=== PATIENT | female | born 1955 | race Asian ===

== ENCOUNTER 2022-12-14 13:12 | Inpatient (IN) | payer MEDICARE, OTHER ==
[~2022-12-14] VITALS: Ht 152.4 cm; Wt 44.9 kg
[~2022-12-14 13:12] MED LIST: ASPI-1444 PO; ATOR40TA71 PO; CARV25 PO; EZET10TA57 PO; FURO40TA5 PO; LISI-893 PO; MIRT-93 PO; SACU1TAB PO; SPIR-37 PO
[2022-12-14] MEDS ORDERED: NITROGLYCERIN 2% (1 GM=INCH) OINTMENT PACKET TP ONE (14:00)
[2022-12-14] MEDS ORDERED: ONDANSETRON HCL 4 MG/2 ML VIAL IVP ONE (14:00)
[2022-12-14 15:38] LABS: CALCIUM, TOTAL 8.7 mg/dL (8.8-10.5); CREATININE 1.12 mg/dL (0.60-1.30); POTASSIUM 3.5 mmol/L (3.5-5.1)
[2022-12-14 15:46] LABS: ALBUMIN 3.7 g/dL (3.4-5.0); BILIRUBIN,TOTAL 0.9 mg/dL (0.1-1.0); TOTAL PROTEIN, SERUM 7.3 g/dL (6.4-8.2)
[2022-12-14 15:55] LABS: BASOPHILS % (AUTO) 1.9 % (0.0-2.0); EOSINOPHILS % (AUTO) 2.3 % (1.0-6.0); HEMATOCRIT 37.5 % (36-46); HEMOGLOBIN 12.3 g/dL (12.0-16.0); LYMPHOCYTES # (AUTO) 1.4 K/uL (1.0-4.8); MEAN CORPUSCULAR HEMOGLOBIN 30.6 pg (26.0-34.0); MEAN CORPUSCULAR HGB CONC 32.8 G/dL (31.0-37.0); MEAN CORPUSCULAR VOLUME 93 fL (80-100); MONOCYTES # (AUTO) 0.3 K/uL (0.1-1.0); MONOCYTES % (AUTO) 6.6 % (2.0-9.0); NEUTROPHILS # (AUTO) 3.2 K/uL (1.8-7.7); NEUTROPHILS % (AUTO) 62.2 % (40.0-70.0); PLATELET COUNT (AUTO) 260 K/uL (150-450); RED BLOOD CELL COUNT(AUTO) 4.02 MIL/uL (4.00-5.20); RED CELL DISTRIBUTION WIDTH 13.8 % (11.5-14.5)
[2022-12-14] MEDS ORDERED: ONDANSETRON HCL 4 MG/2 ML VIAL IVP PRN (16:15)
[2022-12-14] MEDS ORDERED: ACETAMINOPHEN 325 MG TABLET PO PRN (16:15)
[2022-12-14] MEDS ORDERED: HEPARIN SODIUM,PORCINE 5,000 UNITS/ML VIAL IVP PRN ×2 (16:45)
[2022-12-14] MEDS ORDERED: HEPARIN SODIUM 25000 UNITS/D5W 250 ML IV PRN (16:45)
[2022-12-14] MEDS ORDERED: HEPARIN SODIUM,PORCINE 5,000 UNITS/ML VIAL IVP ONE (16:50)
[2022-12-14] MEDS: ATORVASTATIN CALCIUM 40 MG TABLET PO SCH (16:52)
[2022-12-14] MEDS: ASPIRIN 325 MG TABLET PO SCH (16:52)
[2022-12-14 17:19] LABS: EOSINOPHILS % (AUTO) 1.1 % (1.0-6.0); HEMATOCRIT 38.1 % (36-46); HEMOGLOBIN 12.5 g/dL (12.0-16.0); LYMPHOCYTES # (AUTO) 1.3 K/uL (1.0-4.8); LYMPHOCYTES % (AUTO) 24.7 % (22.0-44.0); MEAN CORPUSCULAR HEMOGLOBIN 30.6 pg (26.0-34.0); MEAN CORPUSCULAR HGB CONC 32.9 G/dL (31.0-37.0); MEAN CORPUSCULAR VOLUME 93 fL (80-100); MONOCYTES # (AUTO) 0.2 K/uL (0.1-1.0); MONOCYTES % (AUTO) 4.5 % (2.0-9.0); NEUTROPHILS # (AUTO) 3.7 K/uL (1.8-7.7); NEUTROPHILS % (AUTO) 68.7 % (40.0-70.0); PLATELET COUNT (AUTO) 268 K/uL (150-450); RED BLOOD CELL COUNT(AUTO) 4.08 MIL/uL (4.00-5.20); RED CELL DISTRIBUTION WIDTH 13.8 % (11.5-14.5)
[2022-12-14 17:31] LABS: PROTHROMBIN TIME 10.9 SEC (9.4-11.6)
[2022-12-14 18:11] LABS: APPEARANCE,URINE TURBID (CLEAR); BILIRUBIN,URINE NEGATIVE (NEGATIVE); GLUCOSE, URINE (UA) NEGATIVE (NEGATIVE); KETONES,URINE TRACE mg/dL (NEGATIVE); LEUKOCYTE ESTERASE ,URINE SMALL (NEGATIVE); NITRATE,URINE NEGATIVE (NEGATIVE); OCCULT BLOOD,URINE SMALL (NEGATIVE); PH,URINE 5.5 (5.0-8.0); PROTEIN,URINE 100-200,SEE CONFIRM mg/dL (NEGATIVE); SPECIFIC GRAVITIY, URINE 1.023 (1.003-1.030); UROBILINOGEN,URINE <=1.0 mg/dL (<=1.0)
[2022-12-14 18:21] LABS: RBC,URINE 0-2 /HPF (0-2); SULFOSALICYLIC ACID,URINE 2+ (Negative)
[2022-12-14 18:22] LABS: BACTERIA,URINE Many /HPF (None Seen)
[2022-12-14 18:55] VITALS: BP 106/66
[2022-12-14 20:19] VITALS: BP 104/58
[2022-12-14] MEDS: DOCUSATE SODIUM 100 MG CAPSULE PO SCH (20:30)
[2022-12-14] MEDS: FUROSEMIDE 40 MG/4 ML VIAL IVP SCH (20:30)
[2022-12-14] MEDS: CARVEDILOL 3.125 MG TABLET PO SCH (20:30)
[2022-12-14] MEDS ORDERED: INFLUENZA VIRUS VACCINE QVS 2022-23 (6MO+)/PF 60 MCG/0.5 ML SYRINGE IM. ONE (20:45)
[2022-12-15] MEDS ORDERED: HEPARIN SODIUM,PORCINE 5,000 UNITS/ML VIAL SQ SCH
[2022-12-15 00:07] VITALS: BP 97/63
[2022-12-15 05:03] VITALS: BP 91/63
[2022-12-15 07:10] LABS: BASOPHILS % (AUTO) 1.9 % (0.0-2.0); HEMATOCRIT 38.5 % (36-46); HEMOGLOBIN 12.8 g/dL (12.0-16.0); LYMPHOCYTES # (AUTO) 2.1 K/uL (1.0-4.8); MEAN CORPUSCULAR HEMOGLOBIN 31.1 pg (26.0-34.0); MEAN CORPUSCULAR HGB CONC 33.3 G/dL (31.0-37.0); MEAN CORPUSCULAR VOLUME 94 fL (80-100); MONOCYTES # (AUTO) 0.3 K/uL (0.1-1.0); MONOCYTES % (AUTO) 5.9 % (2.0-9.0); NEUTROPHILS # (AUTO) 2.4 K/uL (1.8-7.7); NEUTROPHILS % (AUTO) 47.2 % (40.0-70.0); PLATELET COUNT (AUTO) 244 K/uL (150-450); RED BLOOD CELL COUNT(AUTO) 4.12 MIL/uL (4.00-5.20); RED CELL DISTRIBUTION WIDTH 13.9 % (11.5-14.5)
[2022-12-15 07:30] VITALS: BP 91/61
[2022-12-15] MEDS: ASPIRIN 325 MG TABLET PO SCH (08:22)
[2022-12-15] MEDS: FAMOTIDINE 20 MG TABLET PO SCH (08:22)
[2022-12-15] MEDS: DOCUSATE SODIUM 100 MG CAPSULE PO SCH ×2 (08:22→20:45)
[2022-12-15] MEDS: FUROSEMIDE 40 MG/4 ML VIAL IVP SCH ×3 (08:22→20:46)
[2022-12-15] MEDS: ATORVASTATIN CALCIUM 40 MG TABLET PO SCH (08:24)
[2022-12-15] MEDS ORDERED: ASPIRIN 81 MG CHEWABLE TABLET PO SCH (09:00)
[2022-12-15] MEDS: CARVEDILOL 3.125 MG TABLET PO SCH ×3 (09:00→21:00)
[2022-12-15] MEDS ORDERED: ATORVASTATIN CALCIUM 40 MG TABLET PO SCH (09:00)
[2022-12-15 11:43] VITALS: BP 97/73
[2022-12-15 16:33] VITALS: BP 101/66
[2022-12-15 20:27] VITALS: BP 90/54
[2022-12-15] MEDS: HEPARIN SODIUM,PORCINE 5,000 UNITS/ML VIAL SQ SCH (20:47)
[2022-12-16 00:12] VITALS: BP 92/59
[2022-12-16 05:01] VITALS: BP 91/56
[2022-12-16 07:21] VITALS: BP 100/69
[2022-12-16 07:39] LABS: BASOPHILS % (AUTO) 1.5 % (0.0-2.0); EOSINOPHILS % (AUTO) 4.8 % (1.0-6.0); HEMATOCRIT 36.5 % (36-46); HEMOGLOBIN 12.1 g/dL (12.0-16.0); LYMPHOCYTES # (AUTO) 1.8 K/uL (1.0-4.8); LYMPHOCYTES % (AUTO) 35.9 % (22.0-44.0); MEAN CORPUSCULAR HEMOGLOBIN 31.2 pg (26.0-34.0); MEAN CORPUSCULAR HGB CONC 33.3 G/dL (31.0-37.0); MEAN CORPUSCULAR VOLUME 94 fL (80-100); MONOCYTES # (AUTO) 0.4 K/uL (0.1-1.0); MONOCYTES % (AUTO) 8.1 % (2.0-9.0); NEUTROPHILS # (AUTO) 2.5 K/uL (1.8-7.7); NEUTROPHILS % (AUTO) 49.7 % (40.0-70.0); PLATELET COUNT (AUTO) 235 K/uL (150-450); RED BLOOD CELL COUNT(AUTO) 3.89 MIL/uL (4.00-5.20); RED CELL DISTRIBUTION WIDTH 13.8 % (11.5-14.5)
[2022-12-16 07:53] LABS: CALCIUM, TOTAL 8.5 mg/dL (8.8-10.5); CREATININE 1.16 mg/dL (0.60-1.30)
[2022-12-16 07:59] LABS: POTASSIUM 2.8 mmol/L (3.5-5.1)
[2022-12-16] MEDS ORDERED: POTASSIUM CHLORIDE 20 MEQ ER TABLET PO PRN (08:15)
[2022-12-16] MEDS ORDERED: POTASSIUM CHL 10 MEQ/WATER 50 ML IV PRN (08:15)
[2022-12-16] MEDS ORDERED: SODIUM CHLORIDE 0.9% 500 ML IV ONE (08:57)
[2022-12-16] MEDS: ASPIRIN 325 MG TABLET PO SCH (08:59)
[2022-12-16] MEDS: FAMOTIDINE 20 MG TABLET PO SCH (08:59)
[2022-12-16] MEDS: ATORVASTATIN CALCIUM 40 MG TABLET PO SCH (08:59)
[2022-12-16] MEDS: DOCUSATE SODIUM 100 MG CAPSULE PO SCH ×2 (08:59→20:48)
[2022-12-16] MEDS: FUROSEMIDE 40 MG/4 ML VIAL IVP SCH (08:59)
[2022-12-16] MEDS: CARVEDILOL 3.125 MG TABLET PO SCH ×2 (09:00→20:48)
[2022-12-16] MEDS: HEPARIN SODIUM,PORCINE 5,000 UNITS/ML VIAL SQ SCH ×2 (09:00→21:00)
[2022-12-16 12:20] VITALS: BP 100/68
[2022-12-16] MEDS ORDERED: FURO20TA4 PO (13:11)
[2022-12-16] MEDS ORDERED: EMPA10TA3 PO (13:11)
[2022-12-16 13:41] LABS: ABG BASE EXCESS 4.5 mmol/L (-2.0-3.0); ABG CARBOXYHEMOGLOBIN 1.4 % (0.0-1.5); ABG HCO3 28.5 mmol/L (22.0-26.0); ABG METHEMOGLOBIN 0.3 % (0.0-1.5); ABG OXYGEN CONTENT 18.5 mL/dL (15.0-23.0); ABG OXYGEN SATURATION 97.2 % (95.0-98.0); ABG OXYHEMOGLOBIN 95.5 % (94.0-100.0); ABG PCO2 37 mmHg (35-45); ABG PH 7.491 (7.35-7.450); ABG TOTAL HEMOGLOBIN 13.7 G/dL (12.0-18.0); PO2, ARTERIAL BG 90.7 mmHg (79.0-87.0); SOURCE, BLOOD GAS ARTERIAL; TEMPERATURE, FAHRENHEIT, BG 98.6 FAHREN (96.0-98.6)
[2022-12-16 13:42] LABS: SITE, BLOOD GAS RT RADIAL
[2022-12-16 15:51] VITALS: BP 102/66
[2022-12-16 20:24] VITALS: BP 100/65
[2022-12-16] MEDS: FUROSEMIDE 40 MG TABLET PO SCH (20:48)
[2022-12-16] MEDS ORDERED: CARVEDILOL 3.125 MG TABLET PO SCH (21:00)
[2022-12-17 00:45] VITALS: BP 90/58
[2022-12-17 05:22] VITALS: BP 91/60
[2022-12-17 07:32] VITALS: BP 93/59
[2022-12-17] MEDS: HEPARIN SODIUM,PORCINE 5,000 UNITS/ML VIAL SQ SCH (09:00)
[2022-12-17] MEDS: DOCUSATE SODIUM 100 MG CAPSULE PO SCH (09:00)
[2022-12-17] MEDS ORDERED: LOSARTAN POTASSIUM 25 MG TABLET PO SCH (09:00)
[2022-12-17] MEDS: ASPIRIN 325 MG TABLET PO SCH (09:21)
[2022-12-17] MEDS: CARVEDILOL 3.125 MG TABLET PO SCH (09:22)
[2022-12-17] MEDS: FUROSEMIDE 40 MG TABLET PO SCH (09:22)
[2022-12-17] MEDS ORDERED: CARV3 PO (09:22)
[2022-12-17] MEDS: FAMOTIDINE 20 MG TABLET PO SCH (09:22)
[2022-12-17] MEDS: ATORVASTATIN CALCIUM 40 MG TABLET PO SCH (09:23)
[2022-12-17] MEDS ORDERED: FURO40 PO (09:23)
[2022-12-17] MEDS ORDERED: POTA-202 PO (09:25)
[2022-12-17 11:40] VITALS: BP 90/58
== END 2022-12-17 13:00 | disposition home health service (06) | DRG 280 ==
LOC: EMS 13:12 → AHU 17:28 → 5S 18:03
PROVIDERS: ADMIT Internal Medicine; ATTEND Internal Medicine
DX: I21.4 Non-ST elevation (NSTEMI) myocardial infarction (principal); I50.23 Acute on chronic systolic (congestive) heart failure; I42.8 Other cardiomyopathies; I11.0 Hypertensive heart disease with heart failure; I25.10 Atherosclerotic heart disease of native coronary artery without angina pectoris; E78.5 Hyperlipidemia, unspecified; I34.0 Nonrheumatic mitral (valve) insufficiency; E87.6 Hypokalemia; M54.9 Dorsalgia, unspecified; Z79.82 Long term (current) use of aspirin; Z79.899 Other long term (current) drug therapy; Z95.810 Presence of automatic (implantable) cardiac defibrillator; Z23 Encounter for immunization; Z53.20 Procedure and treatment not carried out because of patient's decision for unspecified reasons
CPT/HCPCS: 36600; 71045; 80048; 80053; 81001; 81002; 82550; 82805; 83690; 83880; 84132; 84484; 85025; 85610; 85730; 87086; 87186; 93005; 93306; 99291; G0378; J1644; J1940; J2405; J7040; 36415-L1; 36415-TC

== ENCOUNTER 2024-01-14 19:46 | Inpatient (IN) | payer MEDICARE, OTHER ==
[~2024-01-14] VITALS: Ht 152.4 cm; Wt 43.2 kg
[~2024-01-14 19:46] MED LIST changes: -ASPI-1444 PO; +ASPI81TA87 PO; -CARV25 PO; +CARV3 PO; +EMPA10TA3 PO; -EZET10TA57 PO; +FURO20 PO; -FURO40TA5 PO; -LISI-893 PO; +LOSA-417 PO; +OLAN2.5T29 PO; +POTA-202 PO; -SACU1TAB PO
[2024-01-14 20:32] LABS: BASOPHILS % (AUTO) 0.9 % (0.0-2.0); EOSINOPHILS % (AUTO) 1.4 % (1.0-6.0); HEMATOCRIT 36.1 % (36-46); HEMOGLOBIN 12.1 g/dL (12.0-16.0); LYMPHOCYTES # (AUTO) 1.1 K/uL (1.0-4.8); LYMPHOCYTES % (AUTO) 14.8 % (22.0-44.0); MEAN CORPUSCULAR HEMOGLOBIN 31.5 pg (26.0-34.0); MEAN CORPUSCULAR HGB CONC 33.4 G/dL (31.0-37.0); MEAN CORPUSCULAR VOLUME 94 fL (80-100); MONOCYTES # (AUTO) 0.4 K/uL (0.1-1.0); NEUTROPHILS % (AUTO) 77.9 % (40.0-70.0); PLATELET COUNT (AUTO) 258 K/uL (150-450); RED BLOOD CELL COUNT(AUTO) 3.83 MIL/uL (4.00-5.20); RED CELL DISTRIBUTION WIDTH 14.1 % (11.5-14.5); WHITE BLOOD COUNT (AUTO) 7.7 K/uL (4.5-11.0)
[2024-01-14 20:43] LABS: CALCIUM, TOTAL 8.4 mg/dL (8.8-10.5); CREATININE 1.08 mg/dL (0.60-1.30)
[2024-01-14 20:50] LABS: ALBUMIN 3.4 g/dL (3.4-5.0); BILIRUBIN,TOTAL 1.3 mg/dL (0.1-1.0); TOTAL PROTEIN, SERUM 7.1 g/dL (6.4-8.2)
[2024-01-14 20:52] LABS: TROPONIN I-HIGH SENSITIVITY 1898 ng/L (<51)
[2024-01-14] MEDS ORDERED: ACETAMINOPHEN 325 MG TABLET PO PRN (21:30)
[2024-01-14] MEDS ORDERED: ONDANSETRON HCL 4 MG/2 ML VIAL IVP PRN (21:30)
[2024-01-14] MEDS: ASPIRIN 325 MG TABLET PO ONE (21:31)
[2024-01-14 21:38] LABS: COVID AG,FIA SOURCE NASAL SWAB
[2024-01-14 21:54] LABS: SARS-COV2 (COVID) ANTIGEN,FIA Negative (Negative)
[2024-01-14] MEDS: FUROSEMIDE 20 MG/2 ML VIAL IVP SCH (21:56)
[2024-01-14 22:48] LABS: APPEARANCE,URINE CLEAR (CLEAR); BILIRUBIN,URINE NEGATIVE (NEGATIVE); COLOR,URINE LIGHT YELLOW (YELLOW); GLUCOSE, URINE (UA) NEGATIVE (NEGATIVE); KETONES,URINE NEGATIVE (NEGATIVE); LEUKOCYTE ESTERASE ,URINE SMALL (NEGATIVE); NITRATE,URINE NEGATIVE (NEGATIVE); OCCULT BLOOD,URINE SMALL (NEGATIVE); PH,URINE 5.5 (5.0-8.0); PROTEIN,URINE TRACE mg/dL (NEGATIVE); SPECIFIC GRAVITIY, URINE 1.014 (1.003-1.030); UROBILINOGEN,URINE <=1.0 mg/dL (<=1.0)
[2024-01-14 22:58] LABS: BACTERIA,URINE Few /HPF (None Seen); SQUAMOUS EPITHELIAL CELL,UR Few /LPF (None Seen)
[2024-01-14] MEDS: HEPARIN SODIUM,PORCINE 5,000 UNITS/ML VIAL SQ SCH (23:35)
[2024-01-14] MEDS: CefTRIAXone 1 GM/DEXTROSE 50 ML IV SCH (23:35)
[2024-01-15 01:00] LABS: TROPONIN I-HIGH SENSITIVITY 1781 ng/L (<51)
[2024-01-15 04:30] LABS: BASOPHILS % (AUTO) 1.2 % (0.0-2.0); EOSINOPHILS % (AUTO) 5.6 % (1.0-6.0); HEMATOCRIT 35.8 % (36-46); HEMOGLOBIN 11.8 g/dL (12.0-16.0); LYMPHOCYTES # (AUTO) 2.2 K/uL (1.0-4.8); MEAN CORPUSCULAR HEMOGLOBIN 31.1 pg (26.0-34.0); MEAN CORPUSCULAR HGB CONC 32.9 G/dL (31.0-37.0); MEAN CORPUSCULAR VOLUME 95 fL (80-100); MONOCYTES # (AUTO) 0.4 K/uL (0.1-1.0); NEUTROPHILS # (AUTO) 2.9 K/uL (1.8-7.7); NEUTROPHILS % (AUTO) 49.2 % (40.0-70.0); PLATELET COUNT (AUTO) 238 K/uL (150-450); RED BLOOD CELL COUNT(AUTO) 3.79 MIL/uL (4.00-5.20); RED CELL DISTRIBUTION WIDTH 14.4 % (11.5-14.5); WHITE BLOOD COUNT (AUTO) 5.8 K/uL (4.5-11.0)
[2024-01-15 04:39] LABS: CALCIUM, TOTAL 8.1 mg/dL (8.8-10.5); MAGNESIUM 2.1 mg/dL (1.80-2.40); POTASSIUM 3.6 mmol/L (3.5-5.1)
[2024-01-15 04:49] LABS: TROPONIN I-HIGH SENSITIVITY 1754 ng/L (<51)
[2024-01-15 08:24] VITALS: BP 114/64; PULSE 87; RESP 16; TEMP 98.1
[2024-01-15] MEDS ORDERED: FUROSEMIDE 20 MG TABLET PO SCH (09:00)
[2024-01-15] MEDS: ASPIRIN 81 MG DR TABLET PO SCH (09:00)
[2024-01-15] MEDS: CARVEDILOL 3.125 MG TABLET PO SCH (09:28)
[2024-01-15] MEDS: LOSARTAN POTASSIUM 25 MG TABLET PO SCH (09:28)
[2024-01-15] MEDS: SPIRONOLACTONE 25 MG TABLET PO SCH (09:29)
[2024-01-15] MEDS: DOCUSATE SODIUM 100 MG CAPSULE PO SCH (09:29)
[2024-01-15] MEDS: POTASSIUM CHLORIDE 10 MEQ ER TABLET PO SCH (09:30)
[2024-01-15] MEDS: ATORVASTATIN CALCIUM 40 MG TABLET PO SCH (09:31)
[2024-01-15 11:39] VITALS: BP 107/74; PULSE 89; RESP 18; TEMP 97.8
[2024-01-15 15:09] VITALS: BP 91/60; PULSE 74; RESP 18; TEMP 98
[2024-01-15 19:46] VITALS: BP 96/62; PULSE 91; RESP 18; TEMP 98
[2024-01-15] MEDS: OLANZapine 2.5 MG TABLET PO SCH (21:29)
[2024-01-15] MEDS: MIRTAZAPINE 30 MG TABLET PO SCH (21:30)
[2024-01-16] MEDS ORDERED: SODIUM CHLORIDE 0.9% 250 ML IV ONE
[2024-01-16 00:12] VITALS: BP 104/72; PULSE 85; RESP 18; TEMP 97.5
[2024-01-16 04:40] VITALS: BP 107/62; PULSE 75; RESP 18; TEMP 97.5
[2024-01-16 07:59] VITALS: BP 112/74; PULSE 84; RESP 18; TEMP 98
[2024-01-16] MEDS ORDERED: SODIUM CHLORIDE 0.9% 100 ML ONE (09:10)
[2024-01-16] MEDS ORDERED: IOHEXOL 350 MG/ML 100 ML VIAL ONE (09:10)
[2024-01-16 11:35] VITALS: BP 92/62; PULSE 88; RESP 18; TEMP 98
[2024-01-16 15:41] VITALS: BP 94/55; PULSE 88; RESP 18; TEMP 98.5
[2024-01-16 19:51] VITALS: BP 97/58; PULSE 84; RESP 18; TEMP 97.8
[2024-01-17 00:09] VITALS: BP 99/65; PULSE 78; RESP 16; TEMP 97.7
[2024-01-17 04:43] VITALS: BP 98/68; PULSE 72; RESP 18; TEMP 97.5
[2024-01-17 07:28] VITALS: BP 96/58; PULSE 71; RESP 18; TEMP 97.7
[2024-01-17 07:35] LABS: BASOPHILS % (AUTO) 3.6 % (0.0-2.0); EOSINOPHILS % (AUTO) 10.3 % (1.0-6.0); HEMATOCRIT 35.3 % (36-46); HEMOGLOBIN 11.8 g/dL (12.0-16.0); LYMPHOCYTES # (AUTO) 2.3 K/uL (1.0-4.8); LYMPHOCYTES % (AUTO) 48.5 % (22.0-44.0); MEAN CORPUSCULAR HEMOGLOBIN 31.7 pg (26.0-34.0); MEAN CORPUSCULAR HGB CONC 33.5 G/dL (31.0-37.0); MEAN CORPUSCULAR VOLUME 95 fL (80-100); MONOCYTES # (AUTO) 0.4 K/uL (0.1-1.0); NEUTROPHILS # (AUTO) 1.3 K/uL (1.8-7.7); NEUTROPHILS % (AUTO) 28.6 % (40.0-70.0); PLATELET COUNT (AUTO) 252 K/uL (150-450); RED BLOOD CELL COUNT(AUTO) 3.73 MIL/uL (4.00-5.20); RED CELL DISTRIBUTION WIDTH 13.9 % (11.5-14.5); WHITE BLOOD COUNT (AUTO) 4.6 K/uL (4.5-11.0)
[2024-01-17 07:53] LABS: ANION GAP 10 mmol/L (8-16); CALCIUM, TOTAL 8.3 mg/dL (8.8-10.5); CARBON DIOXIDE 25 mmol/L (22-29); CHLORIDE 102 mmol/L (98-107); CREATININE 0.86 mg/dL (0.60-1.30); GLOMERULAR FILTR. RATE CALC > 60 mL/min (>60); GLUCOSE,RANDOM 82 mg/dL (70-110); SODIUM SERUM 137 mmol/L (136-145); UREA NITROGEN, BLOOD 27 mg/dL (7-18)
[2024-01-17 11:29] VITALS: BP 95/61; PULSE 79; RESP 18; TEMP 97.7
== END 2024-01-17 14:15 | disposition home or self-care (01) | DRG 194 ==
LOC: EMS 19:46 → 5S 01-15 06:01
PROVIDERS: ADMIT Internal Medicine; ATTEND Internal Medicine
DX: I50.23 Acute on chronic systolic (congestive) heart failure (principal); I21.4 Non-ST elevation (NSTEMI) myocardial infarction; E43 Unspecified severe protein-calorie malnutrition; E11.9 Type 2 diabetes mellitus without complications; I11.0 Hypertensive heart disease with heart failure; J15.69 Pneumonia due to other Gram-negative bacteria; N39.0 Urinary tract infection, site not specified; R91.8 Other nonspecific abnormal finding of lung field; I34.0 Nonrheumatic mitral (valve) insufficiency; E78.5 Hyperlipidemia, unspecified; Z20.822 Contact with and (suspected) exposure to COVID-19; I25.10 Atherosclerotic heart disease of native coronary artery without angina pectoris; Z95.810 Presence of automatic (implantable) cardiac defibrillator
CPT/HCPCS: 71045; 74174; 74175; 80048; 80053; 81001; 82550; 83735; 83880; 84484; 85025; 87086; 87186; 93005; 99285; J0696; J1644; J1940; J7050; Q9967; 36415-L1; 36415-TC

== ENCOUNTER 2024-08-31 20:44 | Inpatient (IN) | payer MEDICARE, OTHER ==
[~2024-08-31] VITALS: Ht 144.8 cm; Wt 33.7 kg
[~2024-08-31 20:44] MED LIST changes: -FURO20 PO; +FURO20TA5 PO; -OLAN2.5T29 PO; +OLAN2.5T78 PO; -POTA-202 PO
[2024-08-31] MEDS: MORPHINE SULFATE 2 MG/ML SYRINGE IVP ONE ×2 (21:07→21:44)
[2024-08-31] MEDS ORDERED: FUROSEMIDE 20 MG/2 ML VIAL IVP ONE (21:15)
[2024-08-31 21:21] LABS: BASOPHILS % (AUTO) 0.2 % (0.0-2.0); EOSINOPHILS % (AUTO) 0.1 % (1.0-6.0); HEMATOCRIT 40.6 % (36-46); HEMOGLOBIN 12.6 g/dL (12.0-16.0); LYMPHOCYTES # (AUTO) 0.9 K/uL (1.0-4.8); LYMPHOCYTES % (AUTO) 15.1 % (22.0-44.0); MEAN CORPUSCULAR HEMOGLOBIN 31.5 pg (26.0-34.0); MEAN CORPUSCULAR HGB CONC 31.1 G/dL (31.0-37.0); MEAN CORPUSCULAR VOLUME 102 fL (80-100); MONOCYTES # (AUTO) 0.6 K/uL (0.1-1.0); MONOCYTES % (AUTO) 9.6 % (2.0-9.0); NEUTROPHILS # (AUTO) 4.6 K/uL (1.8-7.7); PLATELET COUNT (AUTO) 183 K/uL (150-450); RED CELL DISTRIBUTION WIDTH 17.9 % (11.5-14.5); WHITE BLOOD COUNT (AUTO) 6.1 K/uL (4.5-11.0)
[2024-08-31 21:35] LABS: PROTHROMBIN TIME 25.1 SEC (9.4-11.6)
[2024-08-31 21:36] LABS: ANION GAP 18 mmol/L (8-16); CALCIUM, TOTAL 8.9 mg/dL (8.8-10.5); CARBON DIOXIDE 18 mmol/L (22-29); CHLORIDE 99 mmol/L (98-107); CREATININE 1.69 mg/dL (0.60-1.30); GLOMERULAR FILTR. RATE CALC 30 mL/min (>60); GLUCOSE,RANDOM 58 mg/dL (70-110); POTASSIUM 5.1 mmol/L (3.5-5.1); SODIUM SERUM 135 mmol/L (136-145); UREA NITROGEN, BLOOD 63 mg/dL (7-18)
[2024-08-31 21:42] LABS: B-TYPE NATRIURETIC PEPTIDE > 5000 pg/mL (0-100)
[2024-08-31] MEDS: FUROSEMIDE 20 MG/2 ML VIAL IVP ONE (21:59)
[2024-08-31 22:02] LABS: ALANINE AMINOTRANSFERASE 111 U/L (12-78); ALBUMIN 3.6 g/dL (3.4-5.0); ALKALINE PHOSPHATASE 118 U/L (46-116); ASPARTATE AMINOTRANSFERASE 141 U/L (15-37); BILIRUBIN,TOTAL 4.2 mg/dL (0.1-1.0); CREATINE KINASE, TOTAL ONLY 633 U/L (26-192); TOTAL PROTEIN, SERUM 7.8 g/dL (6.4-8.2)
[2024-08-31 22:05] LABS: TROPONIN I-HIGH SENSITIVITY 2685 ng/L (<51)
[2024-08-31] MEDS: CefTRIAXone 1 GM/DEXTROSE 50 ML IV ONE (23:23)
[2024-09-01] MEDS ORDERED: BISACODYL 10 MG RECTAL RECTAL SUPPOSITORY PR PRN (00:15)
[2024-09-01] MEDS ORDERED: HYDROCODONE/ACETAMINOPHEN 5-325 MG TABLET PO PRN (00:15)
[2024-09-01] MEDS: FUROSEMIDE 40 MG/4 ML VIAL IVP ONE (05:24)
[2024-09-01] MEDS: ONDANSETRON HCL 4 MG/2 ML VIAL IVP ONE (05:24)
[2024-09-01] MEDS: DEXTROSE 50%-WATER 25 GM/50 ML SYRINGE IVP ONE ×2 (06:02→13:25)
[2024-09-01 06:15] VITALS: BP 109/67; PULSE 73; RESP 30; TEMP 98.5; O2SAT 97
[2024-09-01 08:00] VITALS: BP 110/70; PULSE 103; RESP 26; TEMP 98.1; O2SAT 98
[2024-09-01] MEDS: HEPARIN SODIUM,PORCINE 5,000 UNITS/ML VIAL SQ SCH (08:00)
[2024-09-01 08:16] LABS: ABG BASE EXCESS -12.4 mmol/L (-2.0-3.0); ABG CARBOXYHEMOGLOBIN 1.2 % (0.5-1.5); ABG HCO3 15.8 mmol/L (21.0-28.0); ABG METHEMOGLOBIN 0.1 % (0.0-1.5); ABG OXYGEN CONTENT 16.8 mL/dL (15.0-23.0); ABG OXYGEN SATURATION 92.1 % (94.0-98.0); ABG OXYHEMOGLOBIN 90.9 % (94.0-98.0); ABG PCO2 29 mmHg (32.0-45.0); ABG PH 7.299 (7.350-7.450); ABG TOTAL HEMOGLOBIN 13.1 G/dL (12.0-16.0); ALLEN TEST, BLOOD GAS Positive; O2 DEVICE,BLOOD GAS ROOM AIR (ROOM AIR); SITE, BLOOD GAS LFT RADIAL; SOURCE, BLOOD GAS ARTERIAL; TEMPERATURE, FAHRENHEIT, BG 98.2 FAHREN (96.0-98.6)
[2024-09-01] MEDS: PANTOPRAZOLE SODIUM 40 MG DR TABLET PO SCH (08:57)
[2024-09-01] MEDS: FUROSEMIDE 20 MG/2 ML VIAL IVP SCH (08:57)
[2024-09-01] MEDS: ATORVASTATIN CALCIUM 40 MG TABLET PO SCH (08:57)
[2024-09-01] MEDS: EMPAGLIFLOZIN 10 MG TABLET PO SCH (08:58)
[2024-09-01] MEDS: DOCUSATE SODIUM 100 MG CAPSULE PO SCH (08:58)
[2024-09-01] MEDS: ASPIRIN 81 MG DR TABLET PO SCH (08:58)
[2024-09-01] MEDS: SPIRONOLACTONE 25 MG TABLET PO SCH (09:00)
[2024-09-01] MEDS: CARVEDILOL 3.125 MG TABLET PO SCH (09:00)
[2024-09-01] MEDS: MORPHINE SULFATE 2 MG/ML SYRINGE IVP PRN (09:19)
[2024-09-01 10:10] LABS: GLUCOMETER DEV NAME(LOC) ICU.S6; GLUCOSE,POINT OF CARE 95 MG/DL (70-110)
[2024-09-01 11:38] LABS: EOSINOPHILS % (AUTO) 0 % (1.0-6.0); HEMATOCRIT 38.6 % (36-46); HEMOGLOBIN 11.8 g/dL (12.0-16.0); LYMPHOCYTES # (AUTO) 0.9 K/uL (1.0-4.8); LYMPHOCYTES % (AUTO) 5.9 % (22.0-44.0); MEAN CORPUSCULAR HEMOGLOBIN 31.1 pg (26.0-34.0); MEAN CORPUSCULAR HGB CONC 30.6 G/dL (31.0-37.0); MEAN CORPUSCULAR VOLUME 102 fL (80-100); MONOCYTES # (AUTO) 1.1 K/uL (0.1-1.0); MONOCYTES % (AUTO) 7.5 % (2.0-9.0); NEUTROPHILS # (AUTO) 12.5 K/uL (1.8-7.7); PLATELET COUNT (AUTO) 158 K/uL (150-450); RED BLOOD CELL COUNT(AUTO) 3.79 MIL/uL (4.00-5.20); RED CELL DISTRIBUTION WIDTH 17.6 % (11.5-14.5); WHITE BLOOD COUNT (AUTO) 14.4 K/uL (4.5-11.0)
[2024-09-01 11:40] LABS: NEUTROPHILS % (AUTO) 86.6 % (40.0-70.0)
[2024-09-01 11:51] LABS: CALCIUM, TOTAL 8.8 mg/dL (8.8-10.5); CREATININE 2.12 mg/dL (0.60-1.30); POTASSIUM 5.1 mmol/L (3.5-5.1)
[2024-09-01 12:00] VITALS: BP 106/63; PULSE 93; RESP 22; TEMP 98.3; O2SAT 100
[2024-09-01] MEDS ORDERED: DEXTROSE 50%-WATER 25 GM/50 ML SYRINGE IVP ONE (13:00)
[2024-09-01 16:00] VITALS: BP 109/70; PULSE 97; RESP 21; TEMP 98.1; O2SAT 98
[2024-09-01 17:21] LABS: GLUCOMETER DEV NAME(LOC) ICUN.5; GLUCOSE,POINT OF CARE 79 MG/DL (70-110)
[2024-09-01 20:00] VITALS: BP 92/57; PULSE 88; RESP 14; TEMP 97.5; O2SAT 100
[2024-09-01] MEDS: FUROSEMIDE 40 MG/4 ML VIAL IVP SCH (20:11)
[2024-09-02] VITALS: BP 91/57; PULSE 87; RESP 14; TEMP 96.8; O2SAT 95
[2024-09-02 00:01] LABS: GLUCOMETER DEV NAME(LOC) ICU.S6; GLUCOSE,POINT OF CARE 110 MG/DL (70-110)
[2024-09-02 00:10] LABS: GLUCOMETER DEV NAME(LOC) ICUN.5; GLUCOSE,POINT OF CARE 108 MG/DL (70-110)
[2024-09-02 04:00] VITALS: BP 86/61; PULSE 86; RESP 14; TEMP 97.4; O2SAT 93
[2024-09-02 05:42] LABS: BASOPHILS % (AUTO) 0.2 % (0.0-2.0); EOSINOPHILS % (AUTO) 0.1 % (1.0-6.0); HEMATOCRIT 36.4 % (36-46); HEMOGLOBIN 11.8 g/dL (12.0-16.0); LYMPHOCYTES # (AUTO) 0.6 K/uL (1.0-4.8); LYMPHOCYTES % (AUTO) 5.5 % (22.0-44.0); MEAN CORPUSCULAR HEMOGLOBIN 31.6 pg (26.0-34.0); MEAN CORPUSCULAR HGB CONC 32.3 G/dL (31.0-37.0); MEAN CORPUSCULAR VOLUME 98 fL (80-100); MONOCYTES # (AUTO) 0.6 K/uL (0.1-1.0); MONOCYTES % (AUTO) 5.5 % (2.0-9.0); NEUTROPHILS # (AUTO) 9.8 K/uL (1.8-7.7); PLATELET COUNT (AUTO) 148 K/uL (150-450); RED BLOOD CELL COUNT(AUTO) 3.72 MIL/uL (4.00-5.20); RED CELL DISTRIBUTION WIDTH 17.3 % (11.5-14.5); WHITE BLOOD COUNT (AUTO) 11.1 K/uL (4.5-11.0)
[2024-09-02 05:44] LABS: NEUTROPHILS % (AUTO) 88.7 % (40.0-70.0)
[2024-09-02 06:12] LABS: BILIRUBIN,TOTAL 5.1 mg/dL (0.1-1.0); CALCIUM, TOTAL 7.8 mg/dL (8.8-10.5); CREATININE 2.18 mg/dL (0.60-1.30); POTASSIUM 3.6 mmol/L (3.5-5.1); TOTAL PROTEIN, SERUM 6.5 g/dL (6.4-8.2)
[2024-09-02 08:00] VITALS: BP 96/59; PULSE 91; RESP 19; TEMP 97.7; O2SAT 95
[2024-09-02 09:54] LABS: APPEARANCE,URINE HAZY (CLEAR); BILIRUBIN,URINE NEGATIVE (NEGATIVE); COLOR,URINE LIGHT YELLOW (YELLOW); GLUCOSE, URINE (UA) 70-100 mg/dL (NEGATIVE); KETONES,URINE NEGATIVE (NEGATIVE); LEUKOCYTE ESTERASE ,URINE SMALL (NEGATIVE); NITRATE,URINE NEGATIVE (NEGATIVE); OCCULT BLOOD,URINE LARGE (NEGATIVE); PROTEIN,URINE TRACE mg/dL (NEGATIVE); SPECIFIC GRAVITIY, URINE 1.008 (1.003-1.030); UROBILINOGEN,URINE <=1.0 mg/dL (<=1.0)
[2024-09-02 10:04] LABS: BACTERIA,URINE None Seen /HPF (None Seen); SQUAMOUS EPITHELIAL CELL,UR Few /LPF (None Seen)
[2024-09-02 12:00] VITALS: BP 91/58; PULSE 100; RESP 15; TEMP 97.9; O2SAT 95
[2024-09-02] MEDS: ACETAMINOPHEN 325 MG TABLET PO PRN (14:16)
[2024-09-02] MEDS: DOPamine 400MG/D5W[STANDARD] 250 ML IV PRN (15:42)
[2024-09-02 16:00] VITALS: BP 85/59; PULSE 105; RESP 18; TEMP 98.2; O2SAT 93
[2024-09-02 20:00] VITALS: BP 90/66; PULSE 114; PULSE 115; RESP 17; TEMP 98.7; O2SAT 91
[2024-09-03] VITALS (7 sets, daily range): BP systolic 90–106; BP diastolic 45–75; PULSE 95–108; RESP 14–24; TEMP 98.5–99.4; O2SAT 90–96
[2024-09-03 06:29] LABS: BASOPHILS % (AUTO) 0.2 % (0.0-2.0); EOSINOPHILS % (AUTO) 0.1 % (1.0-6.0); HEMATOCRIT 42.4 % (36-46); HEMOGLOBIN 13.9 g/dL (12.0-16.0); LYMPHOCYTES # (AUTO) 0.4 K/uL (1.0-4.8); LYMPHOCYTES % (AUTO) 3.6 % (22.0-44.0); MEAN CORPUSCULAR HEMOGLOBIN 31.3 pg (26.0-34.0); MEAN CORPUSCULAR HGB CONC 32.7 G/dL (31.0-37.0); MEAN CORPUSCULAR VOLUME 96 fL (80-100); MONOCYTES # (AUTO) 0.7 K/uL (0.1-1.0); MONOCYTES % (AUTO) 6.9 % (2.0-9.0); NEUTROPHILS # (AUTO) 8.8 K/uL (1.8-7.7); PLATELET COUNT (AUTO) 174 K/uL (150-450); RED BLOOD CELL COUNT(AUTO) 4.43 MIL/uL (4.00-5.20); RED CELL DISTRIBUTION WIDTH 17.3 % (11.5-14.5); WHITE BLOOD COUNT (AUTO) 9.9 K/uL (4.5-11.0)
[2024-09-03 06:48] LABS: CALCIUM, TOTAL 7.9 mg/dL (8.8-10.5); CREATININE 1.88 mg/dL (0.60-1.30)
[2024-09-03 06:52] LABS: NEUTROPHILS % (AUTO) 89.2 % (40.0-70.0)
[2024-09-03 07:02] LABS: POTASSIUM 2.6 mmol/L (3.5-5.1)
[2024-09-03] MEDS: POTASSIUM CHLORIDE 10% 40 MEQ/30 ML LIQUID UDCUP PO ONE (08:23)
[2024-09-03 14:16] LABS: TROPONIN I-HIGH SENSITIVITY 3652 ng/L (<51)
[2024-09-03] MEDS ORDERED: HEPARIN SODIUM,PORCINE 5,000 UNITS/ML VIAL IVP PRN ×2 (17:00)
[2024-09-03] MEDS ORDERED: SODIUM CHLORIDE 0.9% 250 ML IV ONE (17:39)
[2024-09-03] MEDS: POTASSIUM CHL 10 MEQ/WATER 50 ML IV PRN (17:41)
[2024-09-03 17:57] LABS: BASOPHILS % (AUTO) 0.1 % (0.0-2.0); EOSINOPHILS % (AUTO) 0 % (1.0-6.0); HEMATOCRIT 40.4 % (36-46); LYMPHOCYTES # (AUTO) 0.3 K/uL (1.0-4.8); LYMPHOCYTES % (AUTO) 3.6 % (22.0-44.0); MEAN CORPUSCULAR HEMOGLOBIN 31.1 pg (26.0-34.0); MEAN CORPUSCULAR HGB CONC 32.2 G/dL (31.0-37.0); MEAN CORPUSCULAR VOLUME 97 fL (80-100); MONOCYTES # (AUTO) 0.4 K/uL (0.1-1.0); MONOCYTES % (AUTO) 5.2 % (2.0-9.0); NEUTROPHILS # (AUTO) 7.4 K/uL (1.8-7.7); PLATELET COUNT (AUTO) 144 K/uL (150-450); RED BLOOD CELL COUNT(AUTO) 4.18 MIL/uL (4.00-5.20); RED CELL DISTRIBUTION WIDTH 17.3 % (11.5-14.5); WHITE BLOOD COUNT (AUTO) 8.1 K/uL (4.5-11.0)
[2024-09-03 17:58] LABS: NEUTROPHILS % (AUTO) 91.1 % (40.0-70.0)
[2024-09-03 18:08] LABS: PROTHROMBIN TIME 17.2 SEC (9.4-11.6)
[2024-09-03 18:12] LABS: RBC MORPHOLOGY COMMENT NORMAL RBC MORPH
[2024-09-03] MEDS: HEPARIN SODIUM,PORCINE 5,000 UNITS/ML VIAL IVP ONE (18:38)
[2024-09-03] MEDS: HEPARIN SODIUM 25000 UNITS/D5W 250 ML IV PRN (18:41)
[2024-09-04] VITALS: BP 95/57; PULSE 98; RESP 16; TEMP 98.8; O2SAT 93
[2024-09-04 04:00] VITALS: BP 103/72; PULSE 105; RESP 16; TEMP 99; O2SAT 94
[2024-09-04 06:23] LABS: HEMATOCRIT 45.4 % (36-46); MEAN CORPUSCULAR HEMOGLOBIN 31.8 pg (26.0-34.0); MEAN CORPUSCULAR VOLUME 96 fL (80-100); PLATELET COUNT (AUTO) 153 K/uL (150-450); RED BLOOD CELL COUNT(AUTO) 4.71 MIL/uL (4.00-5.20); WHITE BLOOD COUNT (AUTO) 7.4 K/uL (4.5-11.0)
[2024-09-04 06:32] LABS: CALCIUM, TOTAL 8.5 mg/dL (8.8-10.5); CREATININE 1.59 mg/dL (0.60-1.30); MAGNESIUM 2.2 mg/dL (1.80-2.40); PHOSPHORUS 3.2 mg/dL (2.5-4.9)
[2024-09-04 06:48] LABS: TROPONIN I-HIGH SENSITIVITY 5528 ng/L (<51)
[2024-09-04 07:08] LABS: RBC MORPHOLOGY COMMENT NORMAL RBC MORPH
[2024-09-04 08:00] VITALS: BP 100/68; PULSE 95; RESP 18; TEMP 98.4; O2SAT 96
[2024-09-04 08:50] LABS: BAND NEUTROPHILS % (MANUAL) 3 % (0-5); LYMPHOCYTES % (MANUAL) 5 % (22-44); MONOCYTES % (MANUAL) 7 % (2-9); SEGMENTED NEUTROPHILS % 85 % (40-70); TOTAL CELLS COUNTED 100
[2024-09-04] MEDS: POTASSIUM CHLORIDE 20 MEQ ER TABLET PO PRN (08:56)
[2024-09-04 12:00] VITALS: BP 103/56; PULSE 94; RESP 17; TEMP 97; O2SAT 96
[2024-09-04] MEDS: POTASSIUM CHLORIDE 10% 40 MEQ/30 ML LIQUID UDCUP PO PRN (15:59)
[2024-09-04 16:00] VITALS: BP 97/55; PULSE 89; RESP 16; TEMP 98.1; O2SAT 99
[2024-09-04 20:00] VITALS: BP 116/60; PULSE 86; RESP 15; TEMP 98.5; O2SAT 96
[2024-09-04] MEDS: ZOLPIDEM TARTRATE 5 MG TABLET PO PRN (20:59)
[2024-09-05] VITALS (8 sets, daily range): BP systolic 94–130; BP diastolic 46–71; PULSE 69–92; RESP 16–21; TEMP 98.4–98.8; O2SAT 97–100
[2024-09-05 06:18] LABS: BASOPHILS % (AUTO) 0.2 % (0.0-2.0); EOSINOPHILS % (AUTO) 0.3 % (1.0-6.0); HEMATOCRIT 38.6 % (36-46); HEMOGLOBIN 12.7 g/dL (12.0-16.0); LYMPHOCYTES # (AUTO) 0.3 K/uL (1.0-4.8); LYMPHOCYTES % (AUTO) 5.6 % (22.0-44.0); MEAN CORPUSCULAR HEMOGLOBIN 31.6 pg (26.0-34.0); MEAN CORPUSCULAR HGB CONC 32.9 G/dL (31.0-37.0); MEAN CORPUSCULAR VOLUME 96 fL (80-100); MONOCYTES # (AUTO) 0.7 K/uL (0.1-1.0); MONOCYTES % (AUTO) 12.2 % (2.0-9.0); NEUTROPHILS # (AUTO) 4.6 K/uL (1.8-7.7); NEUTROPHILS % (AUTO) 81.7 % (40.0-70.0); PLATELET COUNT (AUTO) 120 K/uL (150-450); RED BLOOD CELL COUNT(AUTO) 4.03 MIL/uL (4.00-5.20); WHITE BLOOD COUNT (AUTO) 5.6 K/uL (4.5-11.0)
[2024-09-05 06:33] LABS: CALCIUM, TOTAL 8.3 mg/dL (8.8-10.5); CREATININE 1.23 mg/dL (0.60-1.30); POTASSIUM 4.1 mmol/L (3.5-5.1)
[2024-09-05 08:17] LABS: TROPONIN I-HIGH SENSITIVITY 5439 ng/L (<51)
[2024-09-05 09:37] LABS: PROTHROMBIN TIME 12.7 SEC (9.4-11.6)
[2024-09-05 09:46] LABS: ALBUMIN 2.8 g/dL (3.4-5.0); BILIRUBIN,TOTAL 10.3 mg/dL (0.1-1.0); TOTAL PROTEIN, SERUM 6.8 g/dL (6.4-8.2)
[2024-09-05] MEDS: CARVEDILOL 3.125 MG TABLET PO SCH (21:00)
[2024-09-05] MEDS: FUROSEMIDE 20 MG TABLET PO SCH (21:32)
[2024-09-06] VITALS (8 sets, daily range): BP systolic 90–116; BP diastolic 53–73; PULSE 82–97; RESP 17–20; TEMP 97.3–98.6; O2SAT 96–99
[2024-09-06] MEDS: MAGNESIUM HYDROXIDE SUSPENSION 30 ML UDCUP PO PRN (04:19)
[2024-09-06 05:51] LABS: BASOPHILS % (AUTO) 0.1 % (0.0-2.0); EOSINOPHILS % (AUTO) 0.3 % (1.0-6.0); HEMOGLOBIN 12.5 g/dL (12.0-16.0); LYMPHOCYTES # (AUTO) 0.6 K/uL (1.0-4.8); MEAN CORPUSCULAR HEMOGLOBIN 31.3 pg (26.0-34.0); MEAN CORPUSCULAR HGB CONC 32.9 G/dL (31.0-37.0); MEAN CORPUSCULAR VOLUME 95 fL (80-100); MONOCYTES # (AUTO) 0.8 K/uL (0.1-1.0); MONOCYTES % (AUTO) 16.7 % (2.0-9.0); NEUTROPHILS # (AUTO) 3.3 K/uL (1.8-7.7); NEUTROPHILS % (AUTO) 70.9 % (40.0-70.0); PLATELET COUNT (AUTO) 130 K/uL (150-450); RED BLOOD CELL COUNT(AUTO) 3.99 MIL/uL (4.00-5.20); RED CELL DISTRIBUTION WIDTH 17.3 % (11.5-14.5); WHITE BLOOD COUNT (AUTO) 4.7 K/uL (4.5-11.0)
[2024-09-06 05:56] LABS: CALCIUM, TOTAL 8.6 mg/dL (8.8-10.5); CREATININE 1.31 mg/dL (0.60-1.30); POTASSIUM 3.7 mmol/L (3.5-5.1)
[2024-09-06] MEDS: HEPARIN SODIUM,PORCINE 5,000 UNITS/ML VIAL SQ SCH (08:39)
[2024-09-06] MEDS ORDERED: LOSARTAN POTASSIUM 25 MG TABLET PO SCH (09:00)
[2024-09-06] MEDS: LOSARTAN POTASSIUM 25 MG TABLET PO SCH (12:00)
[2024-09-06 12:26] LABS: TROPONIN I-HIGH SENSITIVITY 6227 ng/L (<51)
[2024-09-06] MEDS ORDERED: LOSA-381 PO (12:45)
[2024-09-06] MEDS: FUROSEMIDE 40 MG TABLET PO SCH (21:21)
[2024-09-07 05:08] VITALS: BP 103/52; PULSE 61; RESP 18; TEMP 98.1; O2SAT 95
[2024-09-07 06:58] LABS: CALCIUM, TOTAL 8.3 mg/dL (8.8-10.5); CREATININE 1.39 mg/dL (0.60-1.30)
[2024-09-07 07:08] LABS: TROPONIN I-HIGH SENSITIVITY 5025 ng/L (<51)
[2024-09-07 08:20] VITALS: BP 87/59; PULSE 85; RESP 16; TEMP 98; O2SAT 100
[2024-09-07] MEDS: SODIUM CHLORIDE 0.9% 500 ML IV ONE (08:40)
[2024-09-07] MEDS: FUROSEMIDE 20 MG TABLET PO SCH (08:40)
[2024-09-07 10:50] VITALS: BP 88/63; PULSE 83; RESP 18; TEMP 98; O2SAT 97
[2024-09-07] MEDS: MIDODRINE HCL 5 MG TABLET PO SCH ×2 (10:51→16:30)
[2024-09-07 15:10] VITALS: BP 84/60; PULSE 84; RESP 18; TEMP 98.6; O2SAT 96
[2024-09-07 20:00] VITALS: BP 92/63; PULSE 85; RESP 19; O2SAT 95
[2024-09-08] VITALS: BP 90/56; PULSE 83; RESP 20; O2SAT 95
[2024-09-08 04:00] VITALS: BP 90/42; PULSE 77; RESP 19; O2SAT 97
[2024-09-08 07:32] LABS: BASOPHILS % (AUTO) 0.5 % (0.0-2.0); CALCIUM, TOTAL 7.8 mg/dL (8.8-10.5); CREATININE 1.36 mg/dL (0.60-1.30); EOSINOPHILS % (AUTO) 0.3 % (1.0-6.0); HEMATOCRIT 33.7 % (36-46); HEMOGLOBIN 11.4 g/dL (12.0-16.0); LYMPHOCYTES # (AUTO) 0.8 K/uL (1.0-4.8); LYMPHOCYTES % (AUTO) 14.7 % (22.0-44.0); MEAN CORPUSCULAR HGB CONC 33.7 G/dL (31.0-37.0); MEAN CORPUSCULAR VOLUME 95 fL (80-100); MONOCYTES # (AUTO) 0.6 K/uL (0.1-1.0); MONOCYTES % (AUTO) 12.4 % (2.0-9.0); NEUTROPHILS # (AUTO) 3.8 K/uL (1.8-7.7); NEUTROPHILS % (AUTO) 72.1 % (40.0-70.0); PLATELET COUNT (AUTO) 118 K/uL (150-450); POTASSIUM 3.4 mmol/L (3.5-5.1); RED BLOOD CELL COUNT(AUTO) 3.55 MIL/uL (4.00-5.20); RED CELL DISTRIBUTION WIDTH 17.1 % (11.5-14.5); WHITE BLOOD COUNT (AUTO) 5.3 K/uL (4.5-11.0)
[2024-09-08 08:12] VITALS: BP 87/60; PULSE 75; RESP 16; TEMP 97.5; O2SAT 98
[2024-09-08 11:47] VITALS: BP 89/62; PULSE 81; RESP 16; TEMP 97.9; O2SAT 97
[2024-09-08 14:53] VITALS: BP 89/67; PULSE 89; RESP 16; TEMP 97.3; O2SAT 100
[2024-09-08 20:29] VITALS: BP 94/64; PULSE 92; RESP 19; TEMP 97.5; O2SAT 100
[2024-09-09] VITALS (9 sets, daily range): BP systolic 82–114; BP diastolic 35–65; PULSE 28–87; RESP 16–22; TEMP 97.5–97.9; O2SAT 96–100
[2024-09-09] MEDS ORDERED: IPRATROPIUM BROMIDE 0.5 MG/2.5 ML NEB SOLUTION NEB PRN (10:45)
[2024-09-09] MEDS: ONDANSETRON HCL 4 MG/2 ML VIAL IVP PRN (21:55)
[2024-09-10 04:38] VITALS: BP 92/55; PULSE 65; RESP 18; TEMP 97.8; O2SAT 98
[2024-09-10 08:00] VITALS: BP 86/48; PULSE 83
[2024-09-10 08:34] VITALS: BP 89/63; PULSE 83; RESP 20; TEMP 97.9; O2SAT 100
[2024-09-10 10:00] VITALS: BP 83/53; PULSE 81; RESP 20; O2SAT 94
[2024-09-10] MEDS ORDERED: MIDO5TAB29 PO (11:59)
[2024-09-10] MEDS ORDERED: PANT-31 PO (12:00)
[2024-09-10] MEDS ORDERED: ACET-2247 PO (12:01)
[2024-09-10] MEDS ORDERED: MAGN-169 PO (12:02)
[2024-09-10] MEDS ORDERED: IPRA0.2S49 NEB (12:02)
[2024-09-10] MEDS ORDERED: HYDR-4527 PO (12:04)
[2024-09-10] MEDS ORDERED: FLUT1BLS19 IH (12:05)
[2024-09-10] MEDS ORDERED: IPRA15SP4 NASAL (12:07)
[2024-09-10] MEDS: MIDODRINE HCL 5 MG TABLET PO ONE (13:30)
[2024-09-10] MEDS ORDERED: MIDODRINE HCL 5 MG TABLET PO SCH (16:00)
== END 2024-09-10 16:10 | disposition hospice, home (50) | DRG 133 ==
LOC: EMS 20:44 → EDH 09-01 02:29 → ICU 09-01 06:08 → 5S 09-06 11:46 → 4E 09-09 18:58
PROVIDERS: ADMIT Internal Medicine; ATTEND Internal Medicine
PROC: 05HD33Z Insertion of Infusion Device into Right Cephalic Vein, Percutaneous Approach (ICD-10-PCS; principal; 2024-09-03)
PROC: 05HB33Z Insertion of Infusion Device into Right Basilic Vein, Percutaneous Approach (ICD-10-PCS; 2024-09-03)
DX: J96.01 Acute respiratory failure with hypoxia (principal); R65.11 Systemic inflammatory response syndrome (SIRS) of non-infectious origin with acute organ dysfunction; K72.00 Acute and subacute hepatic failure without coma; I21.4 Non-ST elevation (NSTEMI) myocardial infarction; I50.23 Acute on chronic systolic (congestive) heart failure; R64 Cachexia; E43 Unspecified severe protein-calorie malnutrition; I95.9 Hypotension, unspecified; D68.9 Coagulation defect, unspecified; E87.1 Hypo-osmolality and hyponatremia; N17.9 Acute kidney failure, unspecified; I27.20 Pulmonary hypertension, unspecified; I13.0 Hypertensive heart and chronic kidney disease with heart failure and stage 1 through stage 4 chronic kidney disease, or unspecified chronic kidney disease; I42.8 Other cardiomyopathies; N18.30 Chronic kidney disease, stage 3 unspecified; E78.5 Hyperlipidemia, unspecified; I34.0 Nonrheumatic mitral (valve) insufficiency; I25.10 Atherosclerotic heart disease of native coronary artery without angina pectoris; E87.6 Hypokalemia; K59.00 Constipation, unspecified; Z68.1 Body mass index [BMI] 19.9 or less, adult; Z79.82 Long term (current) use of aspirin; Z85.3 Personal history of malignant neoplasm of breast; Z79.84 Long term (current) use of oral hypoglycemic drugs; Z90.12 Acquired absence of left breast and nipple; Z79.899 Other long term (current) drug therapy; I50.84 End stage heart failure
CPT/HCPCS: 36245; 36569; 36600; 71045; 71250; 72192; 74150; 76705; 76937; 80048; 80053; 80076; 81001; 82550; 82805; 82962; 83735; 83880; 84100; 84132; 84484; 85025; 85610; 85730; 87040; 87081; 87481; 93005; 93306; 97116; 97163; 97166; 97530; 97535; 99285; G0378; J0696; J1250; J1265; J1644; J1940; J2270; J2405; J3480; J7040; J7050; 36415-L1; 36415-TC